=== PATIENT | male | born 1950 | race Caucasian/White ===

== ENCOUNTER 2017-04-12 10:12 | Emergency (ER) | payer MEDICARE, OTHER ==
--- NOTE | 2017-04-12 10:31 | ER Document Report ---
ED Medical Screen (RME) - General Chief Complaint: Shortness Of Breath Stated Complaint: ALLERGIC REACTION Time Seen by Provider: 04/12/17 10:28 Notes: Patient complains of shortness of breath. Patient states that he had a laminectomy several days ago. He states he was placed on Flexeril and oxycodone as well as several other medicines. He states within 15 minutes of taking the Flexeril or oxycodone he feels that his throat tightens and he starts to get hiccups and has trouble breathing. He states he has taken oxycodone in the past without problems. Patient states that despite not taking the medicines today he is still having shortness of breath and feels that his throat is tight. He also feels that his voice is changed. He states the laminectomy lasted approximately 1 hour. And that he has been very ambulatory since then and has not appreciated any leg swelling. No previous history of PE or DVTs. TRAVEL OUTSIDE OF THE [place] IN LAST 30 DAYS: No - Related Data Allergies/Adverse Reactions: No Known Allergies Allergy (Verified 04/12/17 10:19) Past Medical History - Past Medical History Cardiac Medical History: Reports: Hx Hypertension Denies: Hx Heart Attack Pulmonary Medical History: Reports: Hx Asthma - hx of Neurological Medical History: Denies: Hx Cerebrovascular Accident, Hx Seizures Renal/ Medical History: Denies: Hx Peritoneal Dialysis GI Medical History: Denies: Hx Hepatitis, Hx Hiatal Hernia, Hx Ulcer Infectious Medical History: Denies: Hx Hepatitis Past Surgical History: Denies: Hx Open Heart Surgery, Hx Pacemaker Physical Exam - Vital signs Vitals: Temp Pulse Resp BP Pulse Ox 98.4 F 74 20 155/92 H 97 04/12/17 10:18 04/12/17 10:18 04/12/17 10:18 04/12/17 10:18 04/12/17 10:18 Course - Vital Signs Vital signs: Temp Pulse Resp BP Pulse Ox 98.4 F 74 20 155/92 H 97 04/12/17 10:18 04/12/17 10:18 04/12/17 10:18 04/12/17 10:18 04/12/17 10:18
[2017-04-12] MEDS ORDERED: DIPHENHYDRAMINE HCL 50 MG/ML VIAL IV ONE (11:00)
[2017-04-12] MEDS ORDERED: NORMAL SALINE 1000 ML 1,000 ML IV PRN (11:00)
[2017-04-12] MEDS ORDERED: MORPHINE SULFATE 10 MG/ML INJ IV ONE ×2 (11:00→12:12)
[2017-04-12] MEDS ORDERED: FAMOTIDINE INJ/PF 20 MG/2 ML SDV IV ONE (11:00)
[2017-04-12 11:05] LABS: ABSOLUTE LYMPHOCYTES (AUTO) 1.5 10^3/uL (0.5-4.7); ABSOLUTE MONOCYTES (AUTO) 1.3 10^3/uL (0.1-1.4); ABSOLUTE NEUT (AUTO) 15.3 10^3/uL (1.7-8.2); BASOPHILS % (AUTO) 0.1 % (0-2); EOSINOPHILS % (AUTO) 0.1 % (0-6); HEMATOCRIT 47.9 % (37.9-51.0); HEMOGLOBIN 16.2 g/dL (13.5-17.0); HGB HCT DIFFERENCE 0.7; LYMPHOCYTES % (AUTO) 8.2 % (13-45); MEAN CORPUSCULAR HEMOGLOBIN 32.2 pg (27.0-33.4); MEAN CORPUSCULAR HGB CONC 33.9 g/dL (32.0-36.0); MEAN CORPUSCULAR VOLUME 95 fl (80-97); MONOCYTES % (AUTO) 7.4 % (3-13); RED BLOOD COUNT 5.04 10^6/uL (4.35-5.55); RED CELL DISTRIBUTION WIDTH 12.5 % (11.5-14.0); SEGMENTED NEUTROPHILS % (AUTO) 84.2 % (42-78); WHITE BLOOD COUNT 18.2 10^3/uL (4.0-10.5)
--- NOTE | 2017-04-12 11:06 | ER Document Report ---
ED General - General Chief Complaint: Shortness Of Breath Stated Complaint: ALLERGIC REACTION Time Seen by Provider: 04/12/17 10:28 Mode of Arrival: Ambulatory Information source: Patient TRAVEL OUTSIDE OF THE [place] IN LAST 30 DAYS: No - HPI Patient complains to provider of: Shortness of breath, difficulty swallowing, hiccups Onset: Last week Onset/Duration: Waxing and waning Quality of pain: Achy Severity: Moderate Pain Level: 4 Associated symptoms: Nausea, Vomiting, Shortness of breath Exacerbated by: Denies Relieved by: Denies Similar symptoms previously: No Recently seen / treated by doctor: Yes Notes: Patient is a 66-year-old male with a history of asthma and hypertension, who presents to the emergency room complaining of nausea and vomiting, with difficulty breathing, throat and chest tightness, hoarse voice, and intractable hiccups over the last 4-5 days, patient had a recent laminectomy at the L4-L5 level on Monday of last week with Dr. Driscoll of [facility] in [place], he was prescribed a muscle relaxer and oxycodone, he developed increased pain on Monday evening, he was advised to double up on his pain medication, increased frequency of muscle relaxer and was given prednisone to take as well, shortly thereafter he developed some nausea and vomiting, difficulty swallowing, was on his way to the hospital, vomited, was feeling much better after that, however over the last few days he has had intermittent nausea and vomiting, difficulty swallowing, and hiccups that are severe and painful, patient surgery lasted roughly 1 hour, he was intubated during the surgery, no history of similar symptoms previously, he is reporting some lower extremity pain and stiffness but basically he has been unable to take any of his pain medications over the last 24 hours due to his symptoms - Related Data Allergies/Adverse Reactions: No Known Allergies Allergy (Verified 04/12/17 12:06) Home Medications: Current Home Medications Fluticasone Propionate [Flovent Diskus] 2 puff IH DAILY 04/12/17 [History] Methocarbamol 750 mg PO TID 04/12/17 [History] Oxycodone HCl/Acetaminophen [Percocet 5-325 mg Tablet] 1 - 2 tab PO ASDIR PRN [History] Past Medical History - General Information source: Patient - Social History Smoking Status: Former Smoker Family History: Reviewed & Not Pertinent - Past Medical History Cardiac Medical History: Reports: Hx Hypertension Denies: Hx Heart Attack Pulmonary Medical History: Reports: Hx Asthma - hx of Neurological Medical History: Denies: Hx Cerebrovascular Accident, Hx Seizures Renal/ Medical History: Denies: Hx Peritoneal Dialysis GI Medical History: Denies: Hx Hepatitis, Hx Hiatal Hernia, Hx Ulcer Infectious Medical History: Denies: Hx Hepatitis Past Surgical History: Denies: Hx Open Heart Surgery, Hx Pacemaker Review of Systems - Review of Systems Constitutional: No symptoms reported EENT: No symptoms reported Cardiovascular: No symptoms reported Respiratory: See HPI Gastrointestinal: See HPI Genitourinary: No symptoms reported Male Genitourinary: No symptoms reported Musculoskeletal: See HPI Skin: No symptoms reported Hematologic/Lymphatic: No symptoms reported Neurological/Psychological: No symptoms reported -: Yes All other systems reviewed and negative Physical Exam - Vital signs Vitals: Temp Pulse Resp BP Pulse Ox 98.4 F 74 20 155/92 H 97 04/12/17 10:18 04/12/17 10:18 04/12/17 10:18 04/12/17 10:18 04/12/17 10:18 Interpretation: Normal - General General appearance: Alert In distress: None Notes: Actively hiccuping - HEENT Head: Normocephalic, Atraumatic Eyes: Normal Pupils: PERRL - Respiratory Respiratory status: No respiratory distress Chest status: Nontender Breath sounds: Normal Chest palpation: Normal - Cardiovascular Rhythm: Regular Heart sounds: Normal auscultation Murmur: No - Abdominal Inspection: Normal Distension: No distension Bowel sounds: Normal Tenderness: Nontender Organomegaly: No organomegaly - Back Back: Nontender, Wounds - 2.5 cm scabbed wound to lower lumbar area consistent with recent surgery, no erythema, no drainage, no tenderness - Extremities General upper extremity: Normal inspection, Nontender, Normal color, Normal ROM , Normal temperature General lower extremity: Normal inspection, Nontender, Normal color, Normal ROM , Normal temperature, Normal weight bearing. No: Maxi's sign - Neurological Neuro grossly intact: Yes Cognition: Normal Orientation: AAOx4 [place] Coma Scale Eye Opening: Spontaneous Andrey Coma Scale Verbal: Oriented [place] Coma Scale Motor: Obeys Commands Andrey Coma Scale Total: 15 Speech: Normal Motor strength normal: LUE, RUE, LLE, RLE Sensory: Normal - Psychological Associated symptoms: Normal affect, Normal mood - Skin Skin Temperature: Warm Skin Moisture: Dry Skin Color: Normal Course - Re-evaluation Re-evalutation: 04/12/17 16:23 Patient resting comfortably, reports feeling much better, hiccups are resolved at least temporarily, he is able to tolerate p.o. intake, I did receive his medical records from [facility] indicating that patient did receive general anesthesia with intubation during his procedure, no other complications were noted at the time, lab and imaging findings were discussed with patient and spouse at bedside which are unremarkable, patient was advised to stop taking methocarbamol and he will be given a prescription for baclofen as well as Zofran Dosepak to take home, advised to follow-up with a primary care provider or return if symptoms worsen, patient acknowledges understanding and agreement with this plan - Vital Signs Vital signs: Temp Pulse Resp BP Pulse Ox 98.4 F 74 20 155/92 H 97 04/12/17 10:18 04/12/17 10:18 04/12/17 10:18 04/12/17 10:18 04/12/17 10:18 - Laboratory Result Diagrams: 04/12/17 10:35 04/12/17 10:35 Laboratory results interpreted by me: 04/12/17 04/12/17 10:35 10:35 WBC 18.2 H Seg Neutrophils % 84.2 H Lymphocytes % 8.2 L Absolute Neutrophils 15.3 H Sodium 135.4 L Glucose 132 H - Diagnostic Test Radiology reviewed: Image reviewed, Reports reviewed Discharge - Discharge Clinical Impression: Hiccups Condition: Stable Disposition: HOME, SELF-CARE Instructions: Hiccups ([facility]) Additional Instructions: Stop taking methocarbamol. Start taking baclofen as a muscle relaxer which should help with her hiccups as well. Follow-up with your primary care provider and your neurosurgeon in 2-3 days. Return to the emergency room immediately if symptoms worsen or any additional concerns. Prescriptions: Baclofen [Baclofen 20 Mg Tablet] 20 mg PO TID #30 tablet Referrals: NEISHA ANTHONY NP [Primary Care Provider] - Follow up as needed
[2017-04-12 11:19] LABS: ALANINE AMINOTRANSFERASE 43 U/L (21-72); ALBUMIN 4.4 g/dL (3.5-5.0); ALKALINE PHOSPHATASE 95 U/L (38-126); ANION GAP 13 (5-19); ASPARTATE AMINO TRANSFERASE 21 U/L (17-59); BILIRUBIN,DIRECT 0.3 mg/dL (0.0-0.4); BILIRUBIN,TOTAL 1.3 mg/dL (0.2-1.3); BLOOD UREA NITROGEN 19 mg/dL (7-20); CALCIUM 8.9 mg/dL (8.4-10.2); CARBON DIOXIDE 23 mmol/L (22-30); CHLORIDE 99 mmol/L (98-107); CREATININE RESULT 0.85 mg/dL (0.52-1.25); GLUCOSE 132 mg/dL (75-110); POTASSIUM 4.1 mmol/L (3.6-5.0); SODIUM 135.4 mmol/L (137-145); TOTAL PROTEIN 7.6 g/dL (6.3-8.2)
[2017-04-12] MEDS ORDERED: MAG HYDROX/AL HYDROX/SIMETH SUSP 30 ML UDCUP PO ONE (12:11)
[2017-04-12] MEDS ORDERED: LIDOCAINE 2% VISCOUS SOLN 20 ML UDCUP PO ONE (12:11)
[2017-04-12] MEDS ORDERED: METOCLOPRAMIDE HCL ORAL SOLN 10 MG/10 ML UDCUP PO ONE (12:11)
--- NOTE | 2017-04-12 12:32 | RADIOLOGY REPORT (SQ) ---
EXAM DESCRIPTION: CHEST PA/LAT COMPLETED DATE/TIME: 04/12/2017 12:18 pm REASON FOR STUDY: sob COMPARISON: None. EXAM PARAMETERS: NUMBER OF VIEWS: two views TECHNIQUE: Digital Frontal and Lateral radiographic views of the chest acquired. RADIATION DOSE: NA LIMITATIONS: none FINDINGS: LUNGS AND PLEURA: Mild chronic appearing interstitial changes. No opacities, masses or pn eumothorax. No pleural effusion. MEDIASTINUM AND HILAR STRUCTURES: No masses or contour abnormalities. HEART AND VASCULAR STRUCTURES: Heart normal size. No evidence for failure. BONES: No acute findings. HARDWARE: None in the chest. OTHER: No other significant finding. IMPRESSION: NO ACUTE RADIOGRAPHIC FINDING IN THE CHEST. TECHNICAL DOCUMENTATION: JOB ID: [id number] [email or web address] All Rights Reserved
--- NOTE | 2017-04-12 12:32 | RADIOLOGY REPORT (SQ) ---
EXAM DESCRIPTION: SOFT TISSUE NECK COMPLETED DATE/TIME: 04/12/2017 12:18 pm REASON FOR STUDY: diff swallowing COMPARISON: None. NUMBER OF VIEWS: Two views. TECHNIQUE: AP and lateral radiographic image of the soft tissues of the neck. LIMITATIONS: None. FINDINGS: EPIGLOTTIS: Normal. Contour normal. Aryepiglottic folds normal. PREVERTEBRAL SOFT TISSUES: Normal. No soft tissue swelling. SUBGLOTTIC AREA: Normal. No narrowing. RETROPHARYNGEAL SPACE: Normal. No soft tissue masses. BONY STRUCTURES: No significant findings. LUNG APICES: Normal. OTHER: No radiopaque foreign body. No other significant finding. IMPRESSION: NEGATIVE STUDY OF THE SOFT TISSUES OF THE NECK. TECHNICAL DOCUMENTATION: JOB ID: [id number] [email or web address]- All Rights Reserved
[2017-04-12] MEDS ORDERED: CHLORPROMAZINE HCL 25 MG TABLET PO ONE ×2 (13:05→14:21)
[2017-04-12] MEDS ORDERED: DIAZEPAM INJ 10 MG/2 ML DISP.SYRIN IV ONE (14:21)
[2017-04-12] MEDS ORDERED: BACLOFEN 20 MG TABLET PO ONE (15:22)
[2017-04-12] MEDS ORDERED: ONDANSETRON ODT 4 MG TAB (6 TAB/DSPK) PO PRN (16:27)
[2017-04-12 16:50] VITALS: BP 108/69
== END 2017-04-12 16:50 | disposition home or self-care (01) ==
LOC: ER 10:12
DX: R06.6 Hiccough (principal); R13.10 Dysphagia, unspecified; J45.909 Unspecified asthma, uncomplicated; R06.02 Shortness of breath; R11.2 Nausea with vomiting, unspecified; I10 Essential (primary) hypertension; R07.89 Other chest pain; M79.606 Pain in leg, unspecified; R49.0 Dysphonia; Z98.890 Other specified postprocedural states; Z87.891 Personal history of nicotine dependence
CPT/HCPCS: 96376; 99284; 96361; 96374; 96375; 36415; 85025; 80053; 71020; 70360; A9270 ×3; J3360; J1200; J3490; J2270; J7030; S0028